=== PATIENT | female | born 1995 | race Caucasian/White ===

== ENCOUNTER 2016-11-29 13:13 | Emergency (ER) | payer OTHER ==
[2016-11-29 13:20] VITALS: BP 130/82
[2016-11-29] MEDS ORDERED: LIDOCAINE 2% TOPICAL JELLY 30GM TUBE. TP ONE ×2 (13:43→14:00)
[2016-11-29] MEDS ORDERED: LIDOCAINE 2% JELLY 10ML IN APPLICATOR. MM ONE (14:00)
--- NOTE | 2016-11-29 14:38 | PHYS DOC ---
Adult General Chief Complaint Chief Complaint: ABDOMINAL PAIN HPI HPI 21-year-old female who states she is currently having a genital herpes outbreak and was prescribed Valtrex by her primary doctor several days ago but is having significant pain primarily with urination. She also believes she has a yeast infection that she is treating with Monistat. She is not concerned for any sexual transmitted illness at this time. She is currently not actively engaging in sexual intercourse with her herpes infection. Upon my initial assessment, the patient is in visible distress complaining of genital pain and irritation. Patient has tried multiple remedies for this without relief. Patient is afebrile and nontoxic in appearance. She denies any hematuria. She denies any fever or chills. She denies any abdominal pain. She denies any vaginal bleeding. Review of Systems Review of Systems Constitutional: Denies fever or chills [] Eyes: Denies change in visual acuity, redness, or eye pain [] HENT: Denies nasal congestion or sore throat [] Respiratory: Denies cough or shortness of breath [] Cardiovascular: No additional information not addressed in HPI [] GI: Denies abdominal pain, nausea, vomiting, bloody stools or diarrhea [] : Denies dysuria or hematuria [] Musculoskeletal: Denies back pain or joint pain [] Integument: Denies rash, has skin lesions [] Neurologic: Denies headache, focal weakness or sensory changes [] Endocrine: Denies polyuria or polydipsia [] Current Medications Current Medications Current Medications Medications (Trade) Dose Ordered Sig/[facility] Start Time Stop Time Status Last Admin Dose Admin Lidocaine HCl (Uro-Jet) 1 clay 1X ONCE 11/29/16 14:00 11/29/16 14:00 DC Lidocaine HCl (Xylocaine 2% Topical 30gm Tube) 1 clay 1X ONCE 11/29/16 14:00 11/29/16 14:01 DC 11/29/16 14:00 1 CLAY Allergies Allergies Allergies Coded Allergies Type Severity Reaction Last Updated Verified No Known Drug Allergies 11/29/16 No Physical Exam Physical Exam Constitutional: Well developed, well nourished, no acute distress, non-toxic appearance. [] HENT: Normocephalic, atraumatic, bilateral external ears normal, oropharynx moist, no oral exudates, nose normal. [] Eyes: PERRLA, EOMI, conjunctiva normal, no discharge. [] Neck: Normal range of motion, no tenderness, supple, no stridor. [] Cardiovascular:Heart rate regular rhythm, no murmur [] Lungs & Thorax: Bilateral breath sounds clear to auscultation [] Abdomen: Bowel sounds normal, soft, no tenderness, no masses, no pulsatile masses. [] : External vaginal exam reveals multiple vesicular lesions consistent with herpes Skin: Warm, dry, no erythema, no rash. [] Back: No tenderness, no CVA tenderness. [] Extremities: No tenderness, no cyanosis, no clubbing, ROM intact, no edema. [] Neurologic: Alert and oriented X 3, normal motor function, normal sensory function, no focal deficits noted. [] Psychologic: Affect normal, judgement normal, mood normal. [] Current Patient Data Lab Results Laboratory Tests Test 11/29/16 14:24 POC Urine HCG, Qualitative hcg negative (Negative) EKG EKG [] Radiology/Procedures Radiology/Procedures [] Course & Med Decision Making Course & Med Decision Making Pertinent Labs and Imaging studies reviewed. (See chart for details) This 21-year-old female who's having an active herpes infection of her external labia was given lidocaine jelly with significant relief of her symptoms. Her urine dip and urine tests were negative. I counseled her to continue to take her Valtrex and avoid sexual intercourse as she is having an active infection and to follow closely with her primary doctor for symptom resolution. Return precautions were provided and acknowledged by the patient. She was discharged feeling much improved. Dragon Disclaimer Dragon Disclaimer This chart was dictated in whole or in part using Voice Recognition software in a busy, high-work load, and often noisy Emergency Department environment. It may contain unintended and wholly unrecognized errors or omissions. Departure Departure: Impression: Primary Impression: Herpes genitalia Disposition: HOME, SELF-CARE Condition: STABLE Referrals: PCP,UNKNOWN (PCP) Patient Instructions: Herpes Labialis Additional Instructions: Please take your valtrex as prescribed and avoid sexual activity. Return to the ER if you develop any worsening of your symptoms. Use your gel as needed for your symptoms. CODEY FERNANDEZ DO November 29, 2016 14:38
== END 2016-11-29 14:14 | disposition home or self-care (01) ==
LOC: ER 13:13
DX: A60.00 Herpesviral infection of urogenital system, unspecified (principal)
CPT/HCPCS: 81025; 84703; 99282

== ENCOUNTER 2016-12-11 00:13 | Emergency (ER) | payer OTHER ==
[~2016-12-11] VITALS: Ht 160 cm; Wt 74.8 kg
[2016-12-11 00:40] VITALS: BP 108/58
[2016-12-11 02:12] LABS: BASO % 1 % (0-3); EOS # 0.7 x10^3/uL (0.0-0.7); EOS % 9 % (0-3); HEMATOCRIT 39.4 % (36.0-47.0); HEMOGLOBIN 13.3 g/dL (12.0-15.5); LYMPH # 2.4 x10^3/uL (1.0-4.8); LYMPH % 31 % (24-48); MEAN CORPUSCULAR HEMOGLOBIN 32 pg (25-35); MEAN CORPUSCULAR HGB CONC 34 g/dL (31-37); MEAN CORPUSCULAR VOLUME 96 fL (79-100); MONO # 0.5 x10^3/uL (0.0-1.1); MONO % 7 % (0-9); NEUT # 3.9 x10^3uL (1.8-7.7); NEUT % 52 % (31-73); PLATELET COUNT 233 x10^3/uL (140-400); RED BLOOD COUNT 4.12 x10^6/uL (3.50-5.40); RED CELL DISTRIBUTION WIDTH 12.8 % (11.5-14.5); WHITE BLOOD COUNT 7.6 x10^3/uL (4.0-11.0)
--- NOTE | 2016-12-11 02:14 | PHYS DOC ---
General Chief Complaint: SHORTNESS OF BREATH Stated Complaint: DIFFICULTY BREATHING,TIGHTNESS IN CHEST Time Seen by MD: 01:07 Source: patient Exam Limitations: no limitations Problems: History of Present Illness Initial Comments Pt is 21/F to ED c/o chest tightness/sob. Pt states for the past several months she's had anterior left sided chest tightness "like my heart is having a muscle cramp" and feeling that she cannot take a deep breath. Sx have been constant past two months, no relation to activity/PO. Pt occasionally with left arm aching no n/v/diaphoresis/neck pain. Pt does not smoke, denies , denies etoh/illicit, no energy drinks or excessive caffeine, no leg swelling. No prearrival treatment or workup, pt does not have PCP. Pt denies increased stressors, has considered possibility sx are from anxiety. No FH CAD. Timing/Duration: constant, other Severity: moderate Modifying Factors: improves with other Associated Symptoms: chest pain, shortness of breath, other Allergies: Coded Allergies: No Known Drug Allergies (Unverified , 11/29/16) Past Medical History Medical History: no pertinent history Surgical History: noncontributory Social History Smoker: non-smoker Alcohol: none Drugs: none Review of Systems Constitutional: denies chills, denies diaphoresis, denies fever Respiratory: see HPI, denies cough, denies orthopnea, denies wheezing Cardiovascular: see HPI, denies edema, denies palpitations, denies syncope Gastrointestinal: denies abdominal pain, denies diarrhea, denies nausea, denies vomiting Genitourinary: denies frequency, denies hematuria, denies pain Musculoskeletal: see HPI, denies back pain, denies neck pain Psychiatric/Neurological: denies headache, denies numbness, denies paresthesia Hematologic/Lymphatic: denies blood clots, denies easy bleeding, denies easy bruising Physical Exam General Appearance: WD/WN, no apparent distress Eyes: bilateral eye normal inspection, bilateral eye PERRL, bilateral eye EOMI Ear, Nose, Throat: hearing grossly normal, normal ENT inspection, normal pharynx Neck: non-tender, supple Respiratory: normal breath sounds, no respiratory distress Cardiovascular: normal peripheral pulses, regular rate, rhythm Gastrointestinal: non tender, soft Back: no CVA tenderness, no vertebral tenderness Extremities: non-tender, normal inspection, no pedal edema Neurologic/Psychiatric: mushroom spawn maker II-XII nml as tested, no motor/sensory deficits, alert, normal mood/affect, oriented x 3 Skin: normal color, warm/dry Orders, Labs, Meds EKG: NSR 64 bpm, no acute ischemic changes no STEMI interp by me. Chest AP: no acute cardiopulmonary process interp by me. 0255: Time in department 2h 43min, awaiting urine studies. Prolonged ED course due to lab delay eosinophilia noted, otherwise reassuring workup. Will tx possible subacute allergy with close outpt f/u. Departure Time of Disposition: 03:58 Disposition: HOME, SELF-CARE Diagnosis: Possible subacute allergic reaction Condition: STABLE Patient Instructions: Allergy Skin Testing Additional Instructions: Rest, no strenuous activity. OTC benadryl and pepcid while taking prednisone. Rx: prednisone Follow up with a doctor Wednesday for recheck. Return to ED with new or changing symptoms. MAILE DÍAZ DO December 11, 2016 02:14
[2016-12-11 02:26] LABS: ALBUMIN 3.9 g/dL (3.4-5.0); ALBUMIN/GLOBULIN RATIO 1.1 (1.0-1.7); CALCIUM 8.9 mg/dL (8.5-10.1); CREATININE 0.7 mg/dL (0.6-1.0); GFR 105.6; POTASSIUM 3.6 mmol/L (3.5-5.1); TOTAL BILIRUBIN 0.3 mg/dL (0.2-1.0); TOTAL PROTEIN 7.6 g/dL (6.4-8.2)
--- NOTE | 2016-12-11 02:41 | EKG ---
[address] [address] Test Date: 2016-12-11 Test Time: 02:39:54 Pat Name: PATI BROWN Department: Room: Gender: F [employer]: JULIANN : 1995 Requested By: MAILE DÍAZ Order Number: [id number] Reading MD: Measurements Intervals [place] Rate: 64 P: 62 CA: 174 QRS: 75 QRSD: 88 T: 36 QT: 392 QTc: 408 Interpretive Statements SINUS RHYTHM QRS(T) CONTOUR ABNORMALITY CONSIDER ANTEROSEPTAL MYOCARDIAL DAMAGE POSSIBLY ABNORMAL ECG RI6.01 Unconfirmed report No previous ECG available for comparison
[2016-12-11 03:26] LABS: BARBITURATES NEG (NEG); BENZODIAZEPINES NEG (NEG); CANNABINOIDS NEG (NEG); COCAINE NEG (NEG); METHADONE NEG (NEG); OPIATES NEG (NEG); PHENCYCLIDINE NEG (NEG)
[2016-12-11 03:27] LABS: AMPHETAMINE/METHAMPHETAMINE NEG (NEG)
[2016-12-11 03:29] LABS: BACTERIA,URINE FEW /HPF (0-FEW); BILIRUBIN,URINE NEG (NEG); CLARITY,URINE CLEAR; COLOR,URINE YELLOW; GLUCOSE,URINE NEG (NEG); NITRITE,URINE NEG (NEG); RBC,URINE 0 /HPF (0-2); SQUAMOUS EPITHELIAL CELL,UR FEW /LPF; UROBILINOGEN,URINE 0.2 mg/dL (0.2 mg/dL); WBC,URINE OCC /HPF (0-4)
[2016-12-11 03:50] LABS: U PREG PATIENT NEGATIVE (NEG)
[2016-12-11] MEDS ORDERED: PRED20TA PO (04:00)
[2016-12-11] MEDS ORDERED: FAMOTIDINE 20 MG TABLET PO ONE (04:30)
[2016-12-11] MEDS ORDERED: predniSONE 10 MG TABLET PO ONE (04:30)
[2016-12-11] MEDS ORDERED: FAMOTIDINE 20 MG TABLET ONE (04:38)
[2016-12-11] MEDS ORDERED: predniSONE 10 MG TABLET ONE (04:39)
--- NOTE | 2016-12-11 07:13 | RAD ---
Portable chest, 12/11/2016: History: Chest pain, shortness of breath The heart size is normal. The lungs are clear. There is no evidence of pleural fluid. IMPRESSION: No acute cardiopulmonary abnormality is detected.
== END 2016-12-11 04:05 | disposition home or self-care (01) ==
LOC: ER 00:13
DX: R07.89 Other chest pain (principal); R06.02 Shortness of breath
CPT/HCPCS: 36415; 71010; 80053; 80305; 81001; 81025; 82550; 83690; 84484; 85027; 85379; 93005; G0481; 99285-25

== ENCOUNTER 2017-10-05 07:53 | Emergency (ER) | payer OTHER ==
[~2017-10-05 07:53] MED LIST: PRED20TA PO
--- NOTE | 2017-10-05 08:02 | PHYS DOC ---
General Stated Complaint: ABOMINAL PAIN Time Seen by MD: 07:56 Problems: History of Present Illness Initial Comments RN advised me 22-year-old female brought back with abdominal discomfort and . Upon learning that monitoring unavailable at this facility patient chose to leave without being seen. I do not see or speak to the patient during her very short time in the department. Allergies: Coded Allergies: No Known Drug Allergies (Unverified , 11/29/16) Past Medical History Medical History: no pertinent history Surgical History: noncontributory KAE DÍAZ DO Oct 05, 2017 08:02
== END 2017-10-05 08:10 | disposition left against medical advice (07) ==
LOC: ER 07:53
DX: O26.892 Other specified pregnancy related conditions, second trimester (principal); O21.9 Vomiting of pregnancy, unspecified; R10.9 Unspecified abdominal pain; Z3A.17 17 weeks gestation of pregnancy; Z53.21 Procedure and treatment not carried out due to patient leaving prior to being seen by health care provider